=== PATIENT | male | born 1965 | race Caucasian/White ===

== ENCOUNTER 2019-08-19 00:18 | Inpatient (IN) | payer MEDICAID ==
[~2019-08-19] VITALS: Ht 170.2 cm; Wt 107.5 kg
[2019-08-19] VITALS (40 sets, daily range): BP systolic 108–151; BP diastolic 57–107
[2019-08-19] MEDS: ALBUTEROL 6.7GM HFA INHALER ORI SCH
[2019-08-19] MEDS ORDERED: ASPIRIN 81MG TABLET PO ONE (01:30)
[2019-08-19] MEDS ORDERED: FUROSEMIDE 40MG/4ML VIAL IV ONE (01:30)
[2019-08-19] MEDS ORDERED: NITROGLYCERIN OINT 1GM/INCH UDPKT TD ONE (01:30)
[2019-08-19 01:49] LABS: HEMATOCRIT. 23.4 % (42.0-52.0); HEMOGLOBIN. 7.4 g/dL (14.0-18.0); MEAN CORPUSCULAR HEMOGLOBIN 27.6 pg (28.0-32.0); MEAN PLATELET VOLUME 8.7 fl (7.4-10.4); PLATELET 260 x1000/uL (130-400); RED BLOOD CELL COUNT 2.69 mill/uL (4.7-6.1); RED CELL DISTRIBUTION WIDTH 18.3 % (11.6-14.6)
[2019-08-19 01:56] LABS: INR 1.1; PARTIAL THROMBOPLASTIN TIME 28.5 sec (23.4-31.0); PROTHROMBIN TIME 11.8 sec (9.6-11.0)
[2019-08-19 02:10] LABS: CHLORIDE 114 mEq/L (98-107)
[2019-08-19] MEDS ORDERED: PIPERACILLIN/TAZ 3.375G PREMIX 50 ML IV ONE (02:30)
[2019-08-19] MEDS ORDERED: VANCOMYCIN 1 G PREMIX 200 ML IV ONE (02:30)
[2019-08-19] MEDS ORDERED: SODIUM POLYSTYRENE SULFONATE 15 G/60 ML BOT PO ONE (02:30)
[2019-08-19] MEDS ORDERED: DEXTROSE 50% WATER 50ML SYRINGE IV ONE (02:30)
[2019-08-19] MEDS ORDERED: INSULIN REGULAR (HUMULIN R) 300UNITS/3ML IV ONE (02:30)
[2019-08-19] MEDS ORDERED: ALBUTEROL (0.083%) 2.5MG/3ML NEB HHN ONE (02:30)
[2019-08-19] MEDS ORDERED: SODIUM BICARBONATE 8.4% 1 MEQ/ML 50ML SYR IV ONE (02:30)
[2019-08-19 03:30] LABS: PLATELET ESTIMATE NORMAL
[2019-08-19 07:42] LABS: BG BASE EXCESS -12.8 mmol/L (-2.0-2.0); BG BILEVEL POS AIRWAY PRESSURE 15/5; BG CARBOXYHEMOGLOBIN 0.3 % (0.5-1.5); BG DEOXYHEMOGLOBIN 0.2 % (0.0-5.0); BG HCO3 ACT 14.3 mmol/L (22.0-26.0); BG METHEMOGLOBIN 0.3 % (0.0-1.5); BG OXYGEN SATURATION 99.8 % (92.0-98.5); BG OXYHEMOGLOBIN 99.2 % (94.0-97.0); BG PCO2 38.3 mmHg (35.0-45.0); BG PO2 399.4 mmHg (75.0-100.0); BG SAMPLE SITE RIGHT RADIAL; BG TOTAL HEMOGLOBIN 7.1 g/dL (12.0-18.0); BG VENT MODE MASK - BIPAP; BG VENT RATE 16 set
[2019-08-19] MEDS ORDERED: ACETAMINOPHEN 325MG TABLET PO PRN (08:30)
[2019-08-19] MEDS ORDERED: DIPHENHYDRAMINE 50MG/ML VIAL IV PRN (08:30)
[2019-08-19] MEDS ORDERED: ONDANSETRON HCL 4MG/2ML INJ IV PRN (08:30)
[2019-08-19] MEDS ORDERED: CLONIDINE 0.1MG TABLET PO PRN (08:30)
[2019-08-19 08:36] LABS: CLARITY URINE TURBID (CLEAR); COLOR URINE DK YELLOW (YELLOW); KETONES URINE NEGATIVE (NEGATIVE); LEUKOCYTE ESTERASE URINE 3+ (NEGATIVE); NITRITE URINE NEGATIVE (NEGATIVE); OCCULT BLOOD URINE 3+ (NEGATIVE); PH URINE 5.5 (4.5-8.0); PROTEIN URINE 4+ (NEGATIVE); SPECIFIC GRAVITY URINE 1.019 (1.005-1.030); UROBILINOGEN URINE 0.2 E.U./dL (0.2-1.0)
[2019-08-19] MEDS ORDERED: CEFTRIAXONE 1 G PREMIX 50 ML IV SCH (09:00)
[2019-08-19] MEDS: SODIUM BICARBONATE 100 MEQ in SODIUM CHLORIDE 0.45% 1,000 ML IV SCH (09:42)
[2019-08-19] MEDS ORDERED: AZITHROMYCIN 500 MG in DEXT 5% WATER 250 ML IV SCH (10:00)
[2019-08-19] MEDS ORDERED: HEPARIN SODIUM 1,000 UNIT/1ML VIAL IV SCH (15:30)
[2019-08-19] MEDS ORDERED: DEXTROSE 50% WATER 50ML SYRINGE IV PRN (16:15)
[2019-08-19] MEDS: BLOOD SUGAR DIAGNOSTIC STRIP TEST SCH ×2 (16:31→21:46)
[2019-08-19] MEDS: INSULIN LISPRO 100 UNITS/ML SUBCUT SCH ×2 (16:32→21:00)
[2019-08-19 17:44] LABS: BG BASE EXCESS -5.8 mmol/L (-2.0-2.0); BG CARBOXYHEMOGLOBIN 0.3 % (0.5-1.5); BG DEOXYHEMOGLOBIN 5.3 % (0.0-5.0); BG HCO3 ACT 21.4 mmol/L (22.0-26.0); BG METHEMOGLOBIN 0.2 % (0.0-1.5); BG OXYGEN SATURATION 94.7 % (92.0-98.5); BG OXYHEMOGLOBIN 94.2 % (94.0-97.0); BG PCO2 52.4 mmHg (35.0-45.0); BG PH 7.229 (7.350-7.450); BG PO2 83.2 mmHg (75.0-100.0); BG SAMPLE SITE RIGHT RADIAL; BG TOTAL HEMOGLOBIN 7.3 g/dL (12.0-18.0); BG VENT MODE MASK - VENTI
[2019-08-19 21:47] LABS: BG BASE EXCESS -7.3 mmol/L (-2.0-2.0); BG CARBOXYHEMOGLOBIN 0.3 % (0.5-1.5); BG DEOXYHEMOGLOBIN 7.8 % (0.0-5.0); BG FRACTION INSPIRED OXYGEN 50; BG METHEMOGLOBIN 0.2 % (0.0-1.5); BG OXYGEN SATURATION 92.2 % (92.0-98.5); BG OXYHEMOGLOBIN 91.7 % (94.0-97.0); BG PCO2 57.3 mmHg (35.0-45.0); BG PH 7.182 (7.350-7.450); BG PO2 72.9 mmHg (75.0-100.0); BG SAMPLE SITE LEFT RADIAL; BG TOTAL HEMOGLOBIN 9.5 g/dL (12.0-18.0); BG VENT MODE MASK - VENTI
[2019-08-20] VITALS (52 sets, daily range): BP systolic 102–138; BP diastolic 54–80
[2019-08-20] MEDS: ALBUTEROL 6.7GM HFA INHALER ORI SCH (04:00)
[2019-08-20] MEDS: SODIUM BICARBONATE 100 MEQ in SODIUM CHLORIDE 0.45% 1,000 ML IV SCH ×2 (04:06→04:20)
[2019-08-20] MEDS: INSULIN LISPRO 100 UNITS/ML SUBCUT SCH ×4 (06:32→21:00)
[2019-08-20] MEDS: BLOOD SUGAR DIAGNOSTIC STRIP TEST SCH ×4 (06:32→21:02)
[2019-08-20] MEDS ORDERED: CEFTRIAXONE 1 G PREMIX 50 ML IV SCH (09:00)
[2019-08-20] MEDS: IPRATROPIUM/ALBUTEROL 0.5-3(2.5)MG/3ML NEB HHN SCH ×3 (09:00→21:10)
[2019-08-20 09:04] LABS: BG BASE EXCESS -8.1 mmol/L (-2.0-2.0); BG BILEVEL POS AIRWAY PRESSURE 15/5; BG CARBOXYHEMOGLOBIN 0.3 % (0.5-1.5); BG FRACTION INSPIRED OXYGEN 50; BG METHEMOGLOBIN 0.3 % (0.0-1.5); BG OXYGEN SATURATION 81.9 % (92.0-98.5); BG OXYHEMOGLOBIN 81.4 % (94.0-97.0); BG PCO2 56.6 mmHg (35.0-45.0); BG PH 7.167 (7.350-7.450); BG SAMPLE SITE RIGHT RADIAL; BG TOTAL HEMOGLOBIN 7.4 g/dL (12.0-18.0); BG VENT MODE MASK - BIPAP
[2019-08-20] MEDS ORDERED: IPRATROPIUM/ALBUTEROL 0.5-3(2.5)MG/3ML NEB HHN PRN (09:30)
[2019-08-20] MEDS ORDERED: AZITHROMYCIN 500 MG in DEXT 5% WATER 250 ML IV SCH (10:00)
[2019-08-20] MEDS: PANTOPRAZOLE SODIUM 40 MG/VIAL IV SCH (10:10)
[2019-08-20] MEDS: CEFEPIME 1,000 MG in DEXTROSE 5% WATER 50 ML IV SCH (10:10)
[2019-08-20 10:32] LABS: HEMATOCRIT. 21.2 % (42.0-52.0); MEAN CORPUSCULAR HEMOGLOBIN 28.2 pg (28.0-32.0); MEAN CORPUSCULAR VOLUME 86.6 fL (80.0-94.0); MEAN PLATELET VOLUME 8.1 fl (7.4-10.4); PLATELET 213 x1000/uL (130-400); RED BLOOD CELL COUNT 2.45 mill/uL (4.7-6.1); RED CELL DISTRIBUTION WIDTH 17.9 % (11.6-14.6)
[2019-08-20 10:48] LABS: HEMOGLOBIN. 6.9 g/dL (14.0-18.0)
[2019-08-20 10:57] LABS: *AMPHETAMINES SCREEN URINE NEGATIVE (NEGATIVE)
[2019-08-20 10:58] LABS: *BARBITURATES SCREEN URINE NEGATIVE (NEGATIVE); *BENZODIAZEPINES SCREEN URINE NEGATIVE (NEGATIVE); *COCAINE SCREEN URINE NEGATIVE (NEGATIVE); METHADONE URINE SCREEN NEGATIVE (NEGATIVE); OPIATES URINE SCREEN NEGATIVE (NEGATIVE); PHENCYCLIDINE URINE SCREEN NEGATIVE (NEGATIVE)
[2019-08-20 10:59] LABS: CANNABINOID URINE SCREEN NEGATIVE (NEGATIVE)
[2019-08-20 12:39] LABS: PLATELET ESTIMATE NORMAL
[2019-08-20 12:43] LABS: BG BASE EXCESS -8.6 mmol/L (-2.0-2.0); BG BILEVEL POS AIRWAY PRESSURE ST=20/5; BG CARBOXYHEMOGLOBIN 0.3 % (0.5-1.5); BG DEOXYHEMOGLOBIN 1.4 % (0.0-5.0); BG FRACTION INSPIRED OXYGEN 70; BG HCO3 ACT 19.4 mmol/L (22.0-26.0); BG METHEMOGLOBIN 0.4 % (0.0-1.5); BG OXYGEN SATURATION 98.6 % (92.0-98.5); BG OXYHEMOGLOBIN 97.9 % (94.0-97.0); BG PCO2 54.5 mmHg (35.0-45.0); BG PH 7.169 (7.350-7.450); BG PO2 144.6 mmHg (75.0-100.0); BG SAMPLE SITE LEFT RADIAL; BG VENT MODE MASK - BIPAP; BG VENT RATE 16 set
[2019-08-20] MEDS: HEPARIN 5000 UNITS/ML VIAL SUBCUT SCH (14:00)
[2019-08-20 21:49] LABS: BG BASE EXCESS -2.4 mmol/L (-2.0-2.0); BG BILEVEL POS AIRWAY PRESSURE 20/5; BG DEOXYHEMOGLOBIN 1.1 % (0.0-5.0); BG FRACTION INSPIRED OXYGEN 70; BG HCO3 ACT 24.4 mmol/L (22.0-26.0); BG METHEMOGLOBIN 0.4 % (0.0-1.5); BG OXYGEN SATURATION 98.9 % (92.0-98.5); BG OXYHEMOGLOBIN 98.5 % (94.0-97.0); BG PH 7.281 (7.350-7.450); BG PO2 161.1 mmHg (75.0-100.0); BG SAMPLE SITE RIGHT RADIAL; BG TOTAL HEMOGLOBIN 8.2 g/dL (12.0-18.0); BG VENT MODE MASK - BIPAP
[2019-08-20 22:13] LABS: HEMATOCRIT. 22.1 % (42.0-52.0); HEMOGLOBIN. 7.4 g/dL (14.0-18.0); MEAN CORPUSCULAR HEMOGLOBIN 29.2 pg (28.0-32.0); MEAN CORPUSCULAR VOLUME 87.2 fL (80.0-94.0); MEAN PLATELET VOLUME 8.1 fl (7.4-10.4); PLATELET 202 x1000/uL (130-400); RED BLOOD CELL COUNT 2.53 mill/uL (4.7-6.1); RED CELL DISTRIBUTION WIDTH 17.4 % (11.6-14.6)
[2019-08-20 22:27] LABS: INR 1.2; PROTHROMBIN TIME 12.1 sec (9.6-11.0)
[2019-08-20 22:53] LABS: PLATELET ESTIMATE NORMAL
[2019-08-21] VITALS (66 sets, daily range): BP systolic 96–167; BP diastolic 18–82
[2019-08-21] MEDS: SODIUM BICARBONATE 100 MEQ in SODIUM CHLORIDE 0.45% 1,000 ML IV SCH (00:48)
[2019-08-21] MEDS: IPRATROPIUM/ALBUTEROL 0.5-3(2.5)MG/3ML NEB HHN SCH ×6 (01:00→21:02)
[2019-08-21 05:49] LABS: HEMATOCRIT. 23.3 % (42.0-52.0); HEMOGLOBIN. 7.6 g/dL (14.0-18.0); MEAN CORPUSCULAR HEMOGLOBIN 28.7 pg (28.0-32.0); MEAN CORPUSCULAR VOLUME 88.4 fL (80.0-94.0); PLATELET 187 x1000/uL (130-400); RED BLOOD CELL COUNT 2.64 mill/uL (4.7-6.1); RED CELL DISTRIBUTION WIDTH 17.4 % (11.6-14.6)
[2019-08-21 06:21] LABS: FOLIC ACID (FOLATE) SERUM 6.3 ng/mL (>5.38)
[2019-08-21 06:24] LABS: FERRITIN 675 ng/mL (22-322); HEPATITIS B SURFACE AB < 3.1 mIU/mL
[2019-08-21] MEDS: BLOOD SUGAR DIAGNOSTIC STRIP TEST SCH ×4 (06:30→21:00)
[2019-08-21 06:35] LABS: HEPATITIS B SURFACE ANTIGEN NEGATIVE
[2019-08-21] MEDS: INSULIN LISPRO 100 UNITS/ML SUBCUT SCH ×4 (07:00→21:00)
[2019-08-21 07:05] LABS: HEPATITIS A AB IGM NEGATIVE (NEGATIVE)
[2019-08-21 07:52] LABS: PLATELET ESTIMATE NORMAL
[2019-08-21 08:39] LABS: BG BASE EXCESS -0.9 mmol/L (-2.0-2.0); BG BILEVEL POS AIRWAY PRESSURE ST=20/5; BG CARBOXYHEMOGLOBIN 0.2 % (0.5-1.5); BG DEOXYHEMOGLOBIN 5.4 % (0.0-5.0); BG FRACTION INSPIRED OXYGEN 70; BG HCO3 ACT 26.9 mmol/L (22.0-26.0); BG METHEMOGLOBIN 0.1 % (0.0-1.5); BG OXYGEN SATURATION 94.6 % (92.0-98.5); BG OXYHEMOGLOBIN 94.3 % (94.0-97.0); BG PCO2 64.3 mmHg (35.0-45.0); BG PH 7.239 (7.350-7.450); BG PO2 80.3 mmHg (75.0-100.0); BG SAMPLE SITE RIGHT BRACHIAL; BG TOTAL HEMOGLOBIN 7.8 g/dL (12.0-18.0); BG VENT MODE MASK - BIPAP; BG VENT RATE 20 set
[2019-08-21] MEDS: PANTOPRAZOLE SODIUM 40 MG/VIAL IV SCH (09:45)
[2019-08-21] MEDS: DEXT 5%/0.45% NACL 1000ML 1,000 ML IV SCH (10:00)
[2019-08-21] MEDS: CEFEPIME 1,000 MG in DEXTROSE 5% WATER 50 ML IV SCH (10:26)
[2019-08-21] MEDS ORDERED: SODIUM CHLORIDE 10% FOR INH 15ML VIAL NEB INH NR (11:00)
[2019-08-21] MEDS ORDERED: NORMAL SALINE 0.9% 10 ML SYR ONE (11:17)
[2019-08-21] MEDS ORDERED: BUPIVACAINE/EPINEPH/PF 0.25%/0.0005 10ML ONE ×2 (11:17→11:21)
[2019-08-21] MEDS ORDERED: BACITRACIN 50,000 UNITS/VIAL ONE (11:17)
[2019-08-21] MEDS ORDERED: EPINEPHRINE 4 MG in DEXT 5% WATER 246 ML IV SCH (11:45)
[2019-08-21] MEDS ORDERED: FENTANYL CITRATE/PF 50MCG/ML 2ML VIAL ONE (11:50)
[2019-08-21] MEDS ORDERED: NEOSTIGMINE METHYLSULFATE 1MG/ML 10 ML VIAL ONE (11:50)
[2019-08-21] MEDS ORDERED: ROCURONIUM BROMIDE 10MG/ML VIAL 5ML IV ONE (11:50)
[2019-08-21] MEDS ORDERED: PROPOFOL 200MG/20ML VIAL IV ONE (11:50)
[2019-08-21] MEDS ORDERED: MIDAZOLAM HCL 2 MG/2 ML VIAL ONE (11:51)
[2019-08-21] MEDS ORDERED: METOCLOPRAMIDE HCL 10MG/2ML VIAL ONE (11:51)
[2019-08-21] MEDS ORDERED: PHENYLEPHRINE HCL 10 MG/ML 1ML (IV VIAL) IV ONE (11:51)
[2019-08-21] MEDS ORDERED: EPHEDRINE SULFATE 50MG/ML VIAL ONE (11:51)
[2019-08-21] MEDS ORDERED: ONDANSETRON HCL 4MG/2ML INJ ONE (11:51)
[2019-08-21] MEDS ORDERED: GLYCOPYRROLATE 0.2 MG/ML 2ML VIAL ONE (11:51)
[2019-08-21] MEDS ORDERED: CEFAZOLIN SODIUM 1000MG/VIAL ONE (11:51)
[2019-08-21] MEDS ORDERED: SODIUM CHLORIDE 0.9% 10ML VIAL ONE (11:51)
[2019-08-21] MEDS ORDERED: SUCCINYLCHOLINE CHLORIDE 200MG/10ML IV ONE (11:51)
[2019-08-21] MEDS ORDERED: ETOMIDATE 2MG/ML 10ML VIAL IV ONE (11:54)
[2019-08-21] MEDS ORDERED: LIDOCAINE HCL 2% JELLY 5ML ONE (12:09)
[2019-08-21] MEDS ORDERED: TETRACAINE/BENZOCAINE/BUTAMBEN 20 GM SPRAY MM ONE (12:09)
[2019-08-21] MEDS ORDERED: KETOROLAC 30MG/ML VIAL ONE (12:35)
[2019-08-21] MEDS ORDERED: MORPHINE SULFATE 2 MG/ML CPJ (NOT FOR IM USE) IV PRN (13:45)
[2019-08-21] MEDS ORDERED: MAGNESIUM SULFATE 3 GM in DEXT 5% WATER 100 ML IV PRN (13:45)
[2019-08-21] MEDS ORDERED: ONDANSETRON HCL 4MG/2ML INJ IV PRN (13:45)
[2019-08-21] MEDS ORDERED: MAGNESIUM 1 G PREMIX 100 ML IV PRN (13:45)
[2019-08-21] MEDS: PROPOFOL 10MG/ML 100ML 100 ML IV PRN ×2 (15:00→20:19)
[2019-08-21 15:08] LABS: BG BASE EXCESS -1.6 mmol/L (-2.0-2.0); BG CARBOXYHEMOGLOBIN 0.3 % (0.5-1.5); BG DEOXYHEMOGLOBIN 0.8 % (0.0-5.0); BG FRACTION INSPIRED OXYGEN 70; BG HCO3 ACT 21.7 mmol/L (22.0-26.0); BG METHEMOGLOBIN 0.3 % (0.0-1.5); BG OXYGEN SATURATION 99.2 % (92.0-98.5); BG OXYHEMOGLOBIN 98.6 % (94.0-97.0); BG PCO2 30.2 mmHg (35.0-45.0); BG PH 7.474 (7.350-7.450); BG PO2 265.3 mmHg (75.0-100.0); BG SAMPLE SITE A-LINE; BG TIDAL VOLUME(mL) 700 mL; BG TOTAL HEMOGLOBIN 7.2 g/dL (12.0-18.0); BG VENT MODE VENT - A/C; BG VENT RATE 16 set
[2019-08-21 16:41] LABS: PHOSPHORUS 7.1 mg/dL (2.5-4.9)
[2019-08-21 16:52] LABS: MEAN CORPUSCULAR HEMOGLOBIN 28.4 pg (28.0-32.0); MEAN CORPUSCULAR VOLUME 85.7 fL (80.0-94.0); MEAN PLATELET VOLUME 8.4 fl (7.4-10.4); PLATELET 192 x1000/uL (130-400); RED BLOOD CELL COUNT 2.33 mill/uL (4.7-6.1); RED CELL DISTRIBUTION WIDTH 17.1 % (11.6-14.6)
[2019-08-21 17:06] LABS: HEMOGLOBIN. 6.6 g/dL (14.0-18.0)
[2019-08-21 17:47] LABS: PLATELET ESTIMATE NORMAL
[2019-08-21] MEDS ORDERED: MAGNESIUM 4 G PREMIX 100 ML IV NR (18:30)
[2019-08-22] VITALS (90 sets, daily range): BP systolic 112–166; BP diastolic 46–86
[2019-08-22] MEDS: IPRATROPIUM/ALBUTEROL 0.5-3(2.5)MG/3ML NEB HHN SCH ×5 (00:28→15:30)
[2019-08-22] MEDS: PROPOFOL 10MG/ML 100ML 100 ML IV PRN ×2 (01:49→06:35)
[2019-08-22] MEDS: BLOOD SUGAR DIAGNOSTIC STRIP TEST SCH ×4 (06:30→21:00)
[2019-08-22] MEDS: INSULIN LISPRO 100 UNITS/ML SUBCUT SCH ×4 (07:00→21:00)
[2019-08-22 07:13] LABS: BASOPHILS % 0.6 % (0.0-2.0); EOSINOPHILS % 2.8 % (0.0-5.0); HEMOGLOBIN. 7.4 g/dL (14.0-18.0); LYMPHOCYTES % 7.2 % (20.0-50.0); MEAN CORPUSCULAR HEMOGLOBIN 28.7 pg (28.0-32.0); MEAN CORPUSCULAR VOLUME 84.9 fL (80.0-94.0); MEAN PLATELET VOLUME 8.3 fl (7.4-10.4); MONOCYTES % 8.2 % (2.0-8.0); NEUTROPHILS % 81.2 % (40.0-76.0); PLATELET 202 x1000/uL (130-400); RED BLOOD CELL COUNT 2.59 mill/uL (4.7-6.1); RED CELL DISTRIBUTION WIDTH 15.9 % (11.6-14.6)
[2019-08-22] MEDS: PANTOPRAZOLE SODIUM 40 MG/VIAL IV SCH (09:16)
[2019-08-22] MEDS: DEXT 5%/0.45% NACL 1000ML 1,000 ML IV SCH (09:16)
[2019-08-22 09:28] LABS: BG BASE EXCESS -3.9 mmol/L (-2.0-2.0); BG CARBOXYHEMOGLOBIN 0.2 % (0.5-1.5); BG DEOXYHEMOGLOBIN 0.9 % (0.0-5.0); BG FRACTION INSPIRED OXYGEN 40; BG HCO3 ACT 20.1 mmol/L (22.0-26.0); BG METHEMOGLOBIN 0.3 % (0.0-1.5); BG OXYGEN SATURATION 99.1 % (92.0-98.5); BG OXYHEMOGLOBIN 98.6 % (94.0-97.0); BG PCO2 32.2 mmHg (35.0-45.0); BG PH 7.414 (7.350-7.450); BG SAMPLE SITE A-LINE; BG TIDAL VOLUME(mL) 700 mL; BG TOTAL HEMOGLOBIN 7.7 g/dL (12.0-18.0); BG VENT MODE VENT - A/C; BG VENT RATE 12 set
[2019-08-22] MEDS: CEFEPIME 1,000 MG in DEXTROSE 5% WATER 50 ML IV SCH (11:19)
[2019-08-22 11:25] LABS: BG BASE EXCESS -3.9 mmol/L (-2.0-2.0); BG CARBOXYHEMOGLOBIN 0.1 % (0.5-1.5); BG FRACTION INSPIRED OXYGEN 40; BG HCO3 ACT 21.6 mmol/L (22.0-26.0); BG METHEMOGLOBIN 0.3 % (0.0-1.5); BG OXYHEMOGLOBIN 96.6 % (94.0-97.0); BG PO2 102.2 mmHg (75.0-100.0); BG PRESSURE SUPPORT 8; BG SAMPLE SITE A-LINE; BG VENT MODE VENT - CPAP
[2019-08-22] MEDS: CALCIUM ACETATE 667MG CAPSULE PO SCH ×2 (11:37→17:00)
[2019-08-22] MEDS: MAGNESIUM 2 G PREMIX 50 ML IV PRN (15:45)
[2019-08-23] VITALS (78 sets, daily range): BP systolic 76–141; BP diastolic 48–88
[2019-08-23 05:03] LABS: HEMATOCRIT. 33.4 % (42.0-52.0); MEAN CORPUSCULAR HEMOGLOBIN 28.8 pg (28.0-32.0); MEAN CORPUSCULAR VOLUME 87.8 fL (80.0-94.0); MEAN PLATELET VOLUME 8.2 fl (7.4-10.4); PLATELET 217 x1000/uL (130-400); RED BLOOD CELL COUNT 3.81 mill/uL (4.7-6.1); RED CELL DISTRIBUTION WIDTH 15.9 % (11.6-14.6)
[2019-08-23] MEDS: INSULIN LISPRO 100 UNITS/ML SUBCUT SCH ×4 (07:00→20:22)
[2019-08-23] MEDS: BLOOD SUGAR DIAGNOSTIC STRIP TEST SCH ×4 (07:00→20:22)
[2019-08-23] MEDS: CALCIUM ACETATE 667MG CAPSULE PO SCH ×3 (07:00→17:00)
[2019-08-23] MEDS: IPRATROPIUM/ALBUTEROL 0.5-3(2.5)MG/3ML NEB HHN SCH ×4 (07:48→21:45)
[2019-08-23] MEDS: DEXT 5%/0.45% NACL 1000ML 1,000 ML IV SCH (09:32)
[2019-08-23] MEDS: PANTOPRAZOLE SODIUM 40 MG/VIAL IV SCH (09:32)
[2019-08-23 09:45] LABS: PLATELET ESTIMATE NORMAL
[2019-08-23] MEDS: CEFEPIME 1,000 MG in DEXTROSE 5% WATER 50 ML IV SCH (11:38)
[2019-08-23] MEDS: MAGNESIUM 2 G PREMIX 50 ML IV PRN (17:43)
[2019-08-23] MEDS: LORAZEPAM 2MG/ML CPJ IV PRN (22:59)
[2019-08-24] VITALS (12 sets, daily range): BP systolic 99–157; BP diastolic 50–85
[2019-08-24] MEDS ORDERED: DILTIAZEM HCL 30MG TABLET PO NR
[2019-08-24] MEDS: DILTIAZEM HCL 5MG/ML 5ML VIAL IV PRN ×3 (00:10→04:21)
[2019-08-24] MEDS ORDERED: DILTIAZEM HCL 5MG/ML 5ML VIAL IV ONE (00:12)
[2019-08-24] MEDS: METRONIDAZOLE 500 MG PREMIX 100 ML IV SCH ×4 (02:18→22:50)
[2019-08-24] MEDS: IPRATROPIUM/ALBUTEROL 0.5-3(2.5)MG/3ML NEB HHN SCH ×6 (04:00→20:22)
[2019-08-24] MEDS: DOXYCYCLINE 100 MG in DEXT 5% WATER 100 ML IV SCH ×3 (04:19→20:56)
[2019-08-24] MEDS: BLOOD SUGAR DIAGNOSTIC STRIP TEST SCH ×4 (06:33→21:08)
[2019-08-24] MEDS: DILTIAZEM HCL 30MG TABLET PO SCH ×4 (06:33→23:39)
[2019-08-24] MEDS: INSULIN LISPRO 100 UNITS/ML SUBCUT SCH ×4 (07:20→21:00)
[2019-08-24 08:10] LABS: HEMATOCRIT. 32.8 % (42.0-52.0); HEMOGLOBIN. 10.6 g/dL (14.0-18.0); MEAN CORPUSCULAR HEMOGLOBIN 28.9 pg (28.0-32.0); MEAN CORPUSCULAR VOLUME 89.6 fL (80.0-94.0); MEAN PLATELET VOLUME 7.8 fl (7.4-10.4); PLATELET 203 x1000/uL (130-400); RED BLOOD CELL COUNT 3.66 mill/uL (4.7-6.1); RED CELL DISTRIBUTION WIDTH 16.2 % (11.6-14.6)
[2019-08-24] MEDS: PANTOPRAZOLE SODIUM 40 MG/VIAL IV SCH (08:36)
[2019-08-24] MEDS: CALCIUM ACETATE 667MG CAPSULE PO SCH ×3 (08:37→17:20)
[2019-08-24] MEDS: CEFEPIME 1,000 MG in DEXTROSE 5% WATER 50 ML IV SCH (10:55)
[2019-08-24] MEDS: DEXT 5%/0.45% NACL 1000ML 1,000 ML IV SCH (11:06)
[2019-08-24] MEDS: LORAZEPAM 2MG/ML CPJ IV PRN (15:19)
[2019-08-24 16:50] LABS: PLATELET ESTIMATE NORMAL
[2019-08-24] MEDS ORDERED: HEPARIN SODIUM 1,000 UNIT/1ML VIAL IV SCH (17:15)
[2019-08-25] VITALS (13 sets, daily range): BP systolic 51–128; BP diastolic 23–70
[2019-08-25] MEDS: IPRATROPIUM/ALBUTEROL 0.5-3(2.5)MG/3ML NEB HHN SCH ×7 (00:36→23:54)
[2019-08-25] MEDS: DILTIAZEM HCL 30MG TABLET PO SCH ×3 (06:00→22:00)
[2019-08-25] MEDS: METRONIDAZOLE 500 MG PREMIX 100 ML IV SCH ×3 (06:26→23:32)
[2019-08-25] MEDS: BLOOD SUGAR DIAGNOSTIC STRIP TEST SCH ×4 (06:35→21:36)
[2019-08-25 06:57] LABS: HEMATOCRIT. 31.2 % (42.0-52.0); MEAN CORPUSCULAR HEMOGLOBIN 28.6 pg (28.0-32.0); MEAN CORPUSCULAR VOLUME 89.2 fL (80.0-94.0); MEAN PLATELET VOLUME 7.8 fl (7.4-10.4); PLATELET 212 x1000/uL (130-400)
[2019-08-25] MEDS: CALCIUM ACETATE 667MG CAPSULE PO SCH ×3 (08:31→16:58)
[2019-08-25] MEDS: INSULIN LISPRO 100 UNITS/ML SUBCUT SCH ×4 (08:32→21:00)
[2019-08-25] MEDS: DOXYCYCLINE 100 MG in DEXT 5% WATER 100 ML IV SCH ×2 (08:32→21:36)
[2019-08-25] MEDS: FAMOTIDINE 20MG/2ML VIAL IV SCH (08:32)
[2019-08-25] MEDS: MAGNESIUM 2 G PREMIX 50 ML IV PRN (13:07)
[2019-08-25 13:26] LABS: PLATELET ESTIMATE NORMAL
[2019-08-25] MEDS: CEFEPIME 1,000 MG in DEXTROSE 5% WATER 50 ML IV SCH (13:39)
[2019-08-25] MEDS ORDERED: HEPARIN SODIUM 1,000 UNIT/1ML VIAL IV ONE (17:00)
[2019-08-25] MEDS: LORAZEPAM 2MG/ML CPJ IV PRN (21:22)
[2019-08-26] VITALS (12 sets, daily range): BP systolic 95–125; BP diastolic 45–80
[2019-08-26] MEDS: IPRATROPIUM/ALBUTEROL 0.5-3(2.5)MG/3ML NEB HHN SCH ×5 (03:54→20:00)
[2019-08-26] MEDS: DILTIAZEM HCL 30MG TABLET PO SCH ×3 (06:00→22:00)
[2019-08-26] MEDS: BLOOD SUGAR DIAGNOSTIC STRIP TEST SCH ×4 (06:11→21:15)
[2019-08-26] MEDS: METRONIDAZOLE 500 MG PREMIX 100 ML IV SCH ×3 (06:21→22:19)
[2019-08-26 06:47] LABS: HEMATOCRIT. 32.1 % (42.0-52.0); HEMOGLOBIN. 10.4 g/dL (14.0-18.0); MEAN CORPUSCULAR HEMOGLOBIN 28.8 pg (28.0-32.0); MEAN PLATELET VOLUME 7.9 fl (7.4-10.4); PLATELET 194 x1000/uL (130-400); RED BLOOD CELL COUNT 3.61 mill/uL (4.7-6.1); RED CELL DISTRIBUTION WIDTH 15.7 % (11.6-14.6)
[2019-08-26] MEDS: INSULIN LISPRO 100 UNITS/ML SUBCUT SCH ×4 (07:20→21:00)
[2019-08-26] MEDS: CALCIUM ACETATE 667MG CAPSULE PO SCH ×3 (07:20→17:59)
[2019-08-26] MEDS: DOXYCYCLINE 100 MG in DEXT 5% WATER 100 ML IV SCH ×2 (09:12→21:19)
[2019-08-26] MEDS: FAMOTIDINE 20MG/2ML VIAL IV SCH (09:12)
[2019-08-26 10:49] LABS: PLATELET ESTIMATE NORMAL
[2019-08-26] MEDS ORDERED: LACTULOSE 20G/30ML UDC PO PRN (13:15)
[2019-08-27] VITALS (12 sets, daily range): BP systolic 96–129; BP diastolic 48–81
[2019-08-27] MEDS: IPRATROPIUM/ALBUTEROL 0.5-3(2.5)MG/3ML NEB HHN SCH ×6 (04:00→20:00)
[2019-08-27] MEDS: METRONIDAZOLE 500 MG PREMIX 100 ML IV SCH ×3 (05:51→23:13)
[2019-08-27] MEDS: DILTIAZEM HCL 30MG TABLET PO SCH ×2 (06:17→14:40)
[2019-08-27] MEDS: BLOOD SUGAR DIAGNOSTIC STRIP TEST SCH ×4 (06:41→21:27)
[2019-08-27] MEDS: INSULIN LISPRO 100 UNITS/ML SUBCUT SCH ×4 (07:20→21:00)
[2019-08-27 07:37] LABS: HEMATOCRIT. 31.3 % (42.0-52.0); HEMOGLOBIN. 10.1 g/dL (14.0-18.0); MEAN CORPUSCULAR HEMOGLOBIN 28.8 pg (28.0-32.0); MEAN CORPUSCULAR VOLUME 89.1 fL (80.0-94.0); MEAN PLATELET VOLUME 8.1 fl (7.4-10.4); PLATELET 205 x1000/uL (130-400); RED BLOOD CELL COUNT 3.51 mill/uL (4.7-6.1); RED CELL DISTRIBUTION WIDTH 15.8 % (11.6-14.6)
[2019-08-27] MEDS: HEPARIN SODIUM 1,000 UNIT/1ML VIAL IV NR ×2 (10:09→10:51)
[2019-08-27] MEDS: FAMOTIDINE 20MG/2ML VIAL IV SCH (10:50)
[2019-08-27] MEDS: CALCIUM ACETATE 667MG CAPSULE PO SCH ×3 (10:50→17:45)
[2019-08-27] MEDS: DOXYCYCLINE 100 MG in DEXT 5% WATER 100 ML IV SCH ×2 (10:51→21:40)
[2019-08-27] MEDS: LORAZEPAM 2MG/ML CPJ IV PRN (11:22)
[2019-08-27] MEDS: DILTIAZEM HCL 60MG TABLET PO SCH (22:00)
[2019-08-27 23:09] LABS: PLATELET ESTIMATE NORMAL
[2019-08-28] VITALS (12 sets, daily range): BP systolic 96–122; BP diastolic 52–72
[2019-08-28] MEDS: LORAZEPAM 0.5MG TABLET PO PRN ×2 (00:10→21:27)
[2019-08-28] MEDS: IPRATROPIUM/ALBUTEROL 0.5-3(2.5)MG/3ML NEB HHN SCH ×5 (01:06→16:05)
[2019-08-28] MEDS: METRONIDAZOLE 500 MG PREMIX 100 ML IV SCH ×3 (06:05→22:28)
[2019-08-28] MEDS: DILTIAZEM HCL 60MG TABLET PO SCH ×3 (06:09→22:27)
[2019-08-28] MEDS: BLOOD SUGAR DIAGNOSTIC STRIP TEST SCH ×4 (06:34→21:27)
[2019-08-28] MEDS: INSULIN LISPRO 100 UNITS/ML SUBCUT SCH ×4 (07:20→21:24)
[2019-08-28] MEDS: FAMOTIDINE 20MG/2ML VIAL IV SCH (07:58)
[2019-08-28] MEDS: CALCIUM ACETATE 667MG CAPSULE PO SCH ×3 (07:58→17:59)
[2019-08-28] MEDS: DOXYCYCLINE 100 MG in DEXT 5% WATER 100 ML IV SCH ×2 (07:59→21:36)
[2019-08-28 09:12] LABS: HEMATOCRIT. 31.8 % (42.0-52.0); MEAN CORPUSCULAR HEMOGLOBIN 28.4 pg (28.0-32.0); MEAN CORPUSCULAR VOLUME 90.1 fL (80.0-94.0); MEAN PLATELET VOLUME 7.8 fl (7.4-10.4); PLATELET 198 x1000/uL (130-400); RED BLOOD CELL COUNT 3.53 mill/uL (4.7-6.1); RED CELL DISTRIBUTION WIDTH 16.1 % (11.6-14.6)
[2019-08-28 11:21] LABS: INR 1.2; PROTHROMBIN TIME 12.3 sec (9.6-11.0)
[2019-08-28 17:30] LABS: PLATELET ESTIMATE NORMAL
[2019-08-29] VITALS (13 sets, daily range): BP systolic 104–144; BP diastolic 62–88
[2019-08-29] MEDS: DILTIAZEM HCL 60MG TABLET PO SCH ×3 (06:00→22:31)
[2019-08-29 06:32] LABS: HEMATOCRIT. 32.3 % (42.0-52.0); HEMOGLOBIN. 10.3 g/dL (14.0-18.0); MEAN CORPUSCULAR HEMOGLOBIN 28.8 pg (28.0-32.0); MEAN PLATELET VOLUME 8.1 fl (7.4-10.4); PLATELET 196 x1000/uL (130-400); RED BLOOD CELL COUNT 3.59 mill/uL (4.7-6.1)
[2019-08-29] MEDS: BLOOD SUGAR DIAGNOSTIC STRIP TEST SCH ×4 (06:52→21:00)
[2019-08-29] MEDS: INSULIN LISPRO 100 UNITS/ML SUBCUT SCH ×4 (07:20→21:00)
[2019-08-29] MEDS: CALCIUM ACETATE 667MG CAPSULE PO SCH ×3 (07:20→17:34)
[2019-08-29] MEDS: FAMOTIDINE 20MG/2ML VIAL IV SCH (07:52)
[2019-08-29] MEDS: IPRATROPIUM/ALBUTEROL 0.5-3(2.5)MG/3ML NEB HHN SCH ×4 (08:00→20:59)
[2019-08-29] MEDS ORDERED: FENTANYL CITRATE/PF 50MCG/ML 2ML VIAL ONE (08:39)
[2019-08-29] MEDS ORDERED: SODIUM BICARBONATE 4% (2.4MEQ) 5ML VIAL IV ONE (08:45)
[2019-08-29] MEDS ORDERED: LIDOCAINE HCL 1% 20ML VIAL (Pyxis) INJ ONE (08:46)
[2019-08-29] MEDS ORDERED: LORAZEPAM 2MG/ML CPJ IV PRN ×2 (09:45)
[2019-08-29 12:48] LABS: BG BASE EXCESS -2.7 mmol/L (-2.0-2.0); BG CARBOXYHEMOGLOBIN 0.4 % (0.5-1.5); BG DEOXYHEMOGLOBIN 1.9 % (0.0-5.0); BG FRACTION INSPIRED OXYGEN 44; BG HCO3 ACT 24.5 mmol/L (22.0-26.0); BG METHEMOGLOBIN 0.3 % (0.0-1.5); BG OXYGEN SATURATION 98.1 % (92.0-98.5); BG OXYHEMOGLOBIN 97.4 % (94.0-97.0); BG PCO2 53.8 mmHg (35.0-45.0); BG PH 7.277 (7.350-7.450); BG PO2 120.5 mmHg (75.0-100.0); BG SAMPLE SITE RIGHT RADIAL; BG VENT MODE NASAL CANNULA
[2019-08-29] MEDS ORDERED: HEPARIN SODIUM 1,000 UNIT/1ML VIAL IV NR (17:30)
[2019-08-29 19:04] LABS: BG BASE EXCESS 0.7 mmol/L (-2.0-2.0); BG CARBOXYHEMOGLOBIN 0.1 % (0.5-1.5); BG DEOXYHEMOGLOBIN 0.7 % (0.0-5.0); BG FRACTION INSPIRED OXYGEN 100; BG HCO3 ACT 27.8 mmol/L (22.0-26.0); BG METHEMOGLOBIN 0.3 % (0.0-1.5); BG OXYGEN SATURATION 99.3 % (92.0-98.5); BG OXYHEMOGLOBIN 98.9 % (94.0-97.0); BG PCO2 56.8 mmHg (35.0-45.0); BG PH 7.307 (7.350-7.450); BG PO2 246.1 mmHg (75.0-100.0); BG SAMPLE SITE RIGHT RADIAL; BG TOTAL HEMOGLOBIN 11.1 g/dL (12.0-18.0); BG VENT MODE MASK - NRB
[2019-08-29 22:28] LABS: PLATELET ESTIMATE NORMAL
[2019-08-30] VITALS (12 sets, daily range): BP systolic 91–136; BP diastolic 50–77
[2019-08-30] MEDS: IPRATROPIUM/ALBUTEROL 0.5-3(2.5)MG/3ML NEB HHN SCH ×6 (04:00→20:00)
[2019-08-30] MEDS: DILTIAZEM HCL 60MG TABLET PO SCH ×3 (06:00→21:58)
[2019-08-30] MEDS: BLOOD SUGAR DIAGNOSTIC STRIP TEST SCH ×4 (06:07→21:00)
[2019-08-30 07:01] LABS: HEMATOCRIT. 33.7 % (42.0-52.0); HEMOGLOBIN. 10.7 g/dL (14.0-18.0); MEAN CORPUSCULAR VOLUME 91.1 fL (80.0-94.0); MEAN PLATELET VOLUME 7.8 fl (7.4-10.4); PLATELET 175 x1000/uL (130-400); RED CELL DISTRIBUTION WIDTH 16.2 % (11.6-14.6)
[2019-08-30] MEDS: CALCIUM ACETATE 667MG CAPSULE PO SCH ×4 (07:20→18:25)
[2019-08-30] MEDS: INSULIN LISPRO 100 UNITS/ML SUBCUT SCH ×4 (07:20→21:00)
[2019-08-30 08:24] LABS: BG BASE EXCESS -4.7 mmol/L (-2.0-2.0); BG CARBOXYHEMOGLOBIN 0.7 % (0.5-1.5); BG DEOXYHEMOGLOBIN 2.3 % (0.0-5.0); BG FRACTION INSPIRED OXYGEN 44; BG METHEMOGLOBIN 0.1 % (0.0-1.5); BG OXYGEN SATURATION 97.7 % (92.0-98.5); BG OXYHEMOGLOBIN 96.9 % (94.0-97.0); BG PCO2 60.8 mmHg (35.0-45.0); BG PH 7.215 (7.350-7.450); BG PO2 109.1 mmHg (75.0-100.0); BG SAMPLE SITE RIGHT BRACHIAL; BG TOTAL HEMOGLOBIN 13.6 g/dL (12.0-18.0); BG VENT MODE NASAL CANNULA
[2019-08-30] MEDS: FAMOTIDINE 20MG/2ML VIAL IV SCH (09:23)
[2019-08-30 09:27] LABS: PLATELET ESTIMATE NORMAL
[2019-08-30 13:29] LABS: BG BASE EXCESS -2.6 mmol/L (-2.0-2.0); BG BILEVEL POS AIRWAY PRESSURE 20/5; BG CARBOXYHEMOGLOBIN 0.3 % (0.5-1.5); BG DEOXYHEMOGLOBIN 3.5 % (0.0-5.0); BG FRACTION INSPIRED OXYGEN 50; BG METHEMOGLOBIN 0.2 % (0.0-1.5); BG OXYGEN SATURATION 96.5 % (92.0-98.5); BG PCO2 64.8 mmHg (35.0-45.0); BG PH 7.221 (7.350-7.450); BG PO2 94.1 mmHg (75.0-100.0); BG SAMPLE SITE LEFT RADIAL; BG TOTAL HEMOGLOBIN 11.1 g/dL (12.0-18.0); BG VENT MODE MASK - BIPAP
[2019-08-30] MEDS: NYSTATIN POWDER 15GM TOP SCH ×2 (15:45→17:00)
[2019-08-30] MEDS: HEPARIN 5000 UNITS/ML VIAL SUBCUT SCH ×2 (15:49→22:00)
[2019-08-31] VITALS (12 sets, daily range): BP systolic 94–133; BP diastolic 50–70
[2019-08-31] MEDS: IPRATROPIUM/ALBUTEROL 0.5-3(2.5)MG/3ML NEB HHN SCH ×6 (00:41→20:00)
[2019-08-31] MEDS: DILTIAZEM HCL 60MG TABLET PO SCH ×4 (05:51→21:41)
[2019-08-31] MEDS: HEPARIN 5000 UNITS/ML VIAL SUBCUT SCH ×3 (05:52→22:00)
[2019-08-31] MEDS: BLOOD SUGAR DIAGNOSTIC STRIP TEST SCH ×4 (06:14→21:41)
[2019-08-31 06:30] LABS: HEMATOCRIT. 33.4 % (42.0-52.0); HEMOGLOBIN. 10.8 g/dL (14.0-18.0); MEAN CORPUSCULAR VOLUME 89.8 fL (80.0-94.0); MEAN PLATELET VOLUME 8.2 fl (7.4-10.4); PLATELET 179 x1000/uL (130-400); RED BLOOD CELL COUNT 3.71 mill/uL (4.7-6.1); RED CELL DISTRIBUTION WIDTH 16.1 % (11.6-14.6)
[2019-08-31] MEDS: INSULIN LISPRO 100 UNITS/ML SUBCUT SCH ×4 (07:20→21:00)
[2019-08-31 09:28] LABS: BG BILEVEL POS AIRWAY PRESSURE 20/5; BG CARBOXYHEMOGLOBIN 0.4 % (0.5-1.5); BG DEOXYHEMOGLOBIN 2.4 % (0.0-5.0); BG FRACTION INSPIRED OXYGEN 30; BG HCO3 ACT 25.7 mmol/L (22.0-26.0); BG METHEMOGLOBIN 0.2 % (0.0-1.5); BG OXYGEN SATURATION 97.6 % (92.0-98.5); BG PCO2 58.4 mmHg (35.0-45.0); BG PH 7.262 (7.350-7.450); BG PO2 106.3 mmHg (75.0-100.0); BG SAMPLE SITE RIGHT RADIAL; BG TOTAL HEMOGLOBIN 11.3 g/dL (12.0-18.0); BG VENT MODE MASK - BIPAP; BG VENT RATE 20 set
[2019-08-31] MEDS: FAMOTIDINE 20MG/2ML VIAL IV SCH (09:45)
[2019-08-31] MEDS: NYSTATIN POWDER 15GM TOP SCH ×3 (09:45→17:38)
[2019-08-31] MEDS: DILTIAZEM HCL 5MG/ML 5ML VIAL IV PRN (10:20)
[2019-08-31] MEDS: CALCIUM ACETATE 667MG CAPSULE PO SCH ×2 (12:20→17:32)
[2019-08-31 13:00] LABS: PLATELET ESTIMATE NORMAL
[2019-08-31] MEDS: AMIODARONE HCL 200 MG TABLET PO SCH (17:33)
[2019-09-01] VITALS (12 sets, daily range): BP systolic 92–130; BP diastolic 52–84
[2019-09-01] MEDS: IPRATROPIUM/ALBUTEROL 0.5-3(2.5)MG/3ML NEB HHN SCH ×5 (00:10→15:48)
[2019-09-01] MEDS: DILTIAZEM HCL 60MG TABLET PO SCH (06:00)
[2019-09-01] MEDS: HEPARIN 5000 UNITS/ML VIAL SUBCUT SCH ×3 (06:07→21:09)
[2019-09-01] MEDS: BLOOD SUGAR DIAGNOSTIC STRIP TEST SCH ×4 (06:13→20:56)
[2019-09-01] MEDS: INSULIN LISPRO 100 UNITS/ML SUBCUT SCH ×4 (07:20→20:57)
[2019-09-01 07:34] LABS: HEMATOCRIT. 31.4 % (42.0-52.0); HEMOGLOBIN. 10.3 g/dL (14.0-18.0); MEAN CORPUSCULAR HEMOGLOBIN 29.4 pg (28.0-32.0); MEAN CORPUSCULAR VOLUME 89.6 fL (80.0-94.0); PLATELET 199 x1000/uL (130-400); RED BLOOD CELL COUNT 3.51 mill/uL (4.7-6.1); RED CELL DISTRIBUTION WIDTH 16.1 % (11.6-14.6)
[2019-09-01] MEDS: CALCIUM ACETATE 667MG CAPSULE PO SCH ×3 (08:35→17:31)
[2019-09-01] MEDS: FAMOTIDINE 20MG/2ML VIAL IV SCH (08:35)
[2019-09-01] MEDS: NYSTATIN POWDER 15GM TOP SCH ×3 (08:36→17:33)
[2019-09-01 08:40] LABS: BG BASE EXCESS -3.4 mmol/L (-2.0-2.0); BG BILEVEL POS AIRWAY PRESSURE 20/5; BG CARBOXYHEMOGLOBIN 0.3 % (0.5-1.5); BG FRACTION INSPIRED OXYGEN 50; BG METHEMOGLOBIN 0.3 % (0.0-1.5); BG OXYHEMOGLOBIN 97.4 % (94.0-97.0); BG PCO2 47.3 mmHg (35.0-45.0); BG PH 7.305 (7.350-7.450); BG PO2 110.9 mmHg (75.0-100.0); BG SAMPLE SITE RIGHT RADIAL; BG TOTAL HEMOGLOBIN 11.2 g/dL (12.0-18.0); BG VENT MODE MASK - BIPAP; BG VENT RATE 20 set
[2019-09-01] MEDS: AMIODARONE HCL 200 MG TABLET PO SCH ×3 (09:09→17:31)
[2019-09-01] MEDS ORDERED: AMIODARONE HCL 200 MG TABLET PO NR (10:23)
[2019-09-01] MEDS ORDERED: HEPARIN SODIUM 1,000 UNIT/1ML VIAL IV SCH (13:00)
[2019-09-01 13:43] LABS: PLATELET ESTIMATE NORMAL
[2019-09-01] MEDS: DILTIAZEM HCL 30MG TABLET PO SCH ×2 (14:00→21:09)
[2019-09-01 16:36] LABS: BG BASE EXCESS -1.7 mmol/L (-2.0-2.0); BG BILEVEL POS AIRWAY PRESSURE 20/5; BG CARBOXYHEMOGLOBIN 0.2 % (0.5-1.5); BG DEOXYHEMOGLOBIN 4.2 % (0.0-5.0); BG HCO3 ACT 24.3 mmol/L (22.0-26.0); BG METHEMOGLOBIN 0.3 % (0.0-1.5); BG OXYGEN SATURATION 95.8 % (92.0-98.5); BG OXYHEMOGLOBIN 95.3 % (94.0-97.0); BG PCO2 46.2 mmHg (35.0-45.0); BG PH 7.338 (7.350-7.450); BG PO2 82.5 mmHg (75.0-100.0); BG SAMPLE SITE RIGHT RADIAL; BG TOTAL HEMOGLOBIN 10.4 g/dL (12.0-18.0); BG VENT MODE MASK - BIPAP; BG VENT RATE 20 set
[2019-09-02] VITALS (12 sets, daily range): BP systolic 94–138; BP diastolic 56–84
[2019-09-02] MEDS: DILTIAZEM HCL 30MG TABLET PO SCH ×3 (06:00→22:04)
[2019-09-02] MEDS: HEPARIN 5000 UNITS/ML VIAL SUBCUT SCH ×3 (06:31→21:57)
[2019-09-02] MEDS: INSULIN LISPRO 100 UNITS/ML SUBCUT SCH ×4 (06:32→20:34)
[2019-09-02] MEDS: BLOOD SUGAR DIAGNOSTIC STRIP TEST SCH ×4 (06:32→20:27)
[2019-09-02 07:10] LABS: HEMATOCRIT. 31.9 % (42.0-52.0); HEMOGLOBIN. 10.3 g/dL (14.0-18.0); MEAN CORPUSCULAR HEMOGLOBIN 29.1 pg (28.0-32.0); MEAN CORPUSCULAR VOLUME 89.9 fL (80.0-94.0); MEAN PLATELET VOLUME 8.2 fl (7.4-10.4); PLATELET 164 x1000/uL (130-400); RED BLOOD CELL COUNT 3.55 mill/uL (4.7-6.1); RED CELL DISTRIBUTION WIDTH 15.7 % (11.6-14.6)
[2019-09-02] MEDS: IPRATROPIUM/ALBUTEROL 0.5-3(2.5)MG/3ML NEB HHN SCH ×4 (07:48→20:00)
[2019-09-02] MEDS: AMIODARONE HCL 200 MG TABLET PO SCH ×3 (08:24→17:40)
[2019-09-02] MEDS: CALCIUM ACETATE 667MG CAPSULE PO SCH ×3 (08:24→17:39)
[2019-09-02] MEDS: FAMOTIDINE 20MG/2ML VIAL IV SCH (08:24)
[2019-09-02] MEDS: NYSTATIN POWDER 15GM TOP SCH ×3 (08:25→17:40)
[2019-09-02 09:13] LABS: BG BASE EXCESS 1.3 mmol/L (-2.0-2.0); BG CARBOXYHEMOGLOBIN 0.4 % (0.5-1.5); BG DEOXYHEMOGLOBIN 1.2 % (0.0-5.0); BG FRACTION INSPIRED OXYGEN 40; BG HCO3 ACT 27.1 mmol/L (22.0-26.0); BG METHEMOGLOBIN 0.3 % (0.0-1.5); BG OXYGEN SATURATION 98.8 % (92.0-98.5); BG OXYHEMOGLOBIN 98.1 % (94.0-97.0); BG PCO2 48.7 mmHg (35.0-45.0); BG PH 7.364 (7.350-7.450); BG SAMPLE SITE RIGHT BRACHIAL; BG TOTAL HEMOGLOBIN 10.8 g/dL (12.0-18.0); BG VENT MODE NASAL CANNULA
[2019-09-02 13:51] LABS: PLATELET ESTIMATE NORMAL
[2019-09-02] MEDS ORDERED: HEPARIN SODIUM 1,000 UNIT/1ML VIAL IV NR (14:45)
[2019-09-03] VITALS (12 sets, daily range): BP systolic 94–131; BP diastolic 53–72
[2019-09-03] MEDS: IPRATROPIUM/ALBUTEROL 0.5-3(2.5)MG/3ML NEB HHN SCH ×6 (05:03→20:00)
[2019-09-03] MEDS: DILTIAZEM HCL 30MG TABLET PO SCH ×3 (05:17→21:25)
[2019-09-03] MEDS: HEPARIN 5000 UNITS/ML VIAL SUBCUT SCH ×3 (05:17→21:27)
[2019-09-03] MEDS: CALCIUM ACETATE 667MG CAPSULE PO SCH ×3 (06:35→17:46)
[2019-09-03] MEDS: AMIODARONE HCL 200 MG TABLET PO SCH ×3 (06:36→17:46)
[2019-09-03] MEDS: BLOOD SUGAR DIAGNOSTIC STRIP TEST SCH ×4 (06:37→20:19)
[2019-09-03 07:02] LABS: HEMATOCRIT. 29.2 % (42.0-52.0); HEMOGLOBIN. 9.7 g/dL (14.0-18.0); MEAN CORPUSCULAR HEMOGLOBIN 29.4 pg (28.0-32.0); MEAN CORPUSCULAR VOLUME 88.7 fL (80.0-94.0); MEAN PLATELET VOLUME 8.2 fl (7.4-10.4); PLATELET 159 x1000/uL (130-400); RED BLOOD CELL COUNT 3.29 mill/uL (4.7-6.1); RED CELL DISTRIBUTION WIDTH 15.4 % (11.6-14.6)
[2019-09-03] MEDS: INSULIN LISPRO 100 UNITS/ML SUBCUT SCH ×4 (07:20→20:23)
[2019-09-03] MEDS: NYSTATIN POWDER 15GM TOP SCH ×3 (08:35→17:47)
[2019-09-03] MEDS: FAMOTIDINE 20MG/2ML VIAL IV SCH (08:35)
[2019-09-03 10:56] LABS: PLATELET ESTIMATE NORMAL
[2019-09-03 13:50] LABS: PARTIAL THROMBOPLASTIN TIME 27.9 sec (23.4-31.0); PROTHROMBIN TIME 10.8 sec (9.6-11.0)
[2019-09-04] VITALS (10 sets, daily range): BP systolic 105–152; BP diastolic 49–128
[2019-09-04] MEDS: IPRATROPIUM/ALBUTEROL 0.5-3(2.5)MG/3ML NEB HHN SCH ×6 (04:00→21:43)
[2019-09-04] MEDS: DILTIAZEM HCL 30MG TABLET PO SCH ×3 (05:25→21:00)
[2019-09-04] MEDS: BLOOD SUGAR DIAGNOSTIC STRIP TEST SCH ×4 (06:19→21:01)
[2019-09-04] MEDS: CALCIUM ACETATE 667MG CAPSULE PO SCH ×3 (06:26→17:04)
[2019-09-04] MEDS: AMIODARONE HCL 200 MG TABLET PO SCH ×3 (06:26→17:04)
[2019-09-04] MEDS: INSULIN LISPRO 100 UNITS/ML SUBCUT SCH ×4 (06:27→21:01)
[2019-09-04] MEDS: HEPARIN 5000 UNITS/ML VIAL SUBCUT SCH ×3 (06:36→21:00)
[2019-09-04 06:59] LABS: HEMATOCRIT. 27.8 % (42.0-52.0); HEMOGLOBIN. 9.1 g/dL (14.0-18.0); MEAN CORPUSCULAR HEMOGLOBIN 29.3 pg (28.0-32.0); MEAN CORPUSCULAR VOLUME 89.1 fL (80.0-94.0); MEAN PLATELET VOLUME 8.3 fl (7.4-10.4); PLATELET 158 x1000/uL (130-400); RED BLOOD CELL COUNT 3.12 mill/uL (4.7-6.1); RED CELL DISTRIBUTION WIDTH 15.7 % (11.6-14.6)
[2019-09-04] MEDS: FAMOTIDINE 20MG/2ML VIAL IV SCH (09:12)
[2019-09-04] MEDS: NYSTATIN POWDER 15GM TOP SCH ×3 (09:12→17:04)
[2019-09-04] MEDS ORDERED: SODIUM BICARBONATE 4% (2.4MEQ) 5ML VIAL IV ONE (12:17)
[2019-09-04] MEDS ORDERED: LIDOCAINE HCL 1% 20ML VIAL (Pyxis) INJ ONE (12:18)
[2019-09-04] MEDS ORDERED: CEFAZOLIN SODIUM 1000MG/VIAL ONE (13:08)
[2019-09-04] MEDS ORDERED: CALCIUM CHLORIDE 1GM/10ML SYR IV ONE (13:18)
[2019-09-04] MEDS ORDERED: ONDANSETRON HCL 4MG/2ML INJ IV PRN (14:15)
[2019-09-04] MEDS ORDERED: HYDROMORPHONE HCL/PF 2MG/ML CPJ IV PRN (14:15)
[2019-09-04 16:40] LABS: PLATELET ESTIMATE NORMAL
[2019-09-05] VITALS (8 sets, daily range): BP systolic 91–150; BP diastolic 50–99
[2019-09-05] MEDS: IPRATROPIUM/ALBUTEROL 0.5-3(2.5)MG/3ML NEB HHN SCH ×2 (01:02→04:59)
[2019-09-05] MEDS: CALCIUM ACETATE 667MG CAPSULE PO SCH ×2 (06:35→13:56)
[2019-09-05] MEDS: HEPARIN 5000 UNITS/ML VIAL SUBCUT SCH (06:35)
[2019-09-05] MEDS: DILTIAZEM HCL 30MG TABLET PO SCH ×2 (06:35→13:56)
[2019-09-05] MEDS: AMIODARONE HCL 200 MG TABLET PO SCH (06:35)
[2019-09-05] MEDS: BLOOD SUGAR DIAGNOSTIC STRIP TEST SCH ×2 (06:36→12:11)
[2019-09-05 07:13] LABS: HEMATOCRIT. 28.4 % (42.0-52.0); HEMOGLOBIN. 9.3 g/dL (14.0-18.0); MEAN CORPUSCULAR VOLUME 88.7 fL (80.0-94.0); MEAN PLATELET VOLUME 8.3 fl (7.4-10.4); PLATELET 187 x1000/uL (130-400)
[2019-09-05] MEDS: INSULIN LISPRO 100 UNITS/ML SUBCUT SCH ×2 (07:20→12:11)
[2019-09-05] MEDS: NYSTATIN POWDER 15GM TOP SCH ×2 (09:00→13:57)
[2019-09-05] MEDS ORDERED: AMIODARONE HCL 200 MG TABLET PO SCH (11:00)
[2019-09-05] MEDS: FAMOTIDINE 20MG/2ML VIAL IV SCH (11:30)
[2019-09-05] MEDS ORDERED: HEPARIN SODIUM 1,000 UNIT/1ML VIAL IV SCH (12:00)
[2019-09-05 12:54] LABS: PLATELET ESTIMATE NORMAL
== END 2019-09-05 14:42 | DRG 710 ==
LOC: ER 00:18 → MICUSO 02:38 → EDBEDREQ 02:40 → EDBEDREQTM 02:40 → ENRESERV 12:12 → ER 12:45 → MICUNO 08-21 10:23 → 3WST 08-23 19:39
PROVIDERS: ADMIT Internal Medicine; ATTEND Internal Medicine
PROC: 5A1D70Z Performance of Urinary Filtration, Intermittent, Less than 6 Hours Per Day (ICD-10-PCS; 2019-08-19)
PROC: 5A09357 Assistance with Respiratory Ventilation, Less than 24 Consecutive Hours, Continuous Positive Airway Pressure (ICD-10-PCS; 2019-08-19)
PROC: 02HV33Z Insertion of Infusion Device into Superior Vena Cava, Percutaneous Approach (ICD-10-PCS; 2019-08-19)
PROC: B548ZZA Ultrasonography of Superior Vena Cava, Guidance (ICD-10-PCS; 2019-08-19)
PROC: 5A1D70Z Performance of Urinary Filtration, Intermittent, Less than 6 Hours Per Day (ICD-10-PCS; 2019-08-20)
PROC: 5A09457 Assistance with Respiratory Ventilation, 24-96 Consecutive Hours, Continuous Positive Airway Pressure (ICD-10-PCS; 2019-08-20)
PROC: 30233N1 Transfusion of Nonautologous Red Blood Cells into Peripheral Vein, Percutaneous Approach (ICD-10-PCS; 2019-08-20)
PROC: 0W993ZZ Drainage of Right Pleural Cavity, Percutaneous Approach (ICD-10-PCS; 2019-08-20)
PROC: 0BNF4ZZ Release Right Lower Lung Lobe, Percutaneous Endoscopic Approach (ICD-10-PCS; principal; 2019-08-21)
PROC: 0W9940Z Drainage of Right Pleural Cavity with Drainage Device, Percutaneous Endoscopic Approach (ICD-10-PCS; 2019-08-21)
PROC: 5A1D70Z Performance of Urinary Filtration, Intermittent, Less than 6 Hours Per Day (ICD-10-PCS; 2019-08-22)
PROC: 5A1D70Z Performance of Urinary Filtration, Intermittent, Less than 6 Hours Per Day (ICD-10-PCS; 2019-08-24)
PROC: 5A1D70Z Performance of Urinary Filtration, Intermittent, Less than 6 Hours Per Day (ICD-10-PCS; 2019-08-25)
PROC: 5A1D70Z Performance of Urinary Filtration, Intermittent, Less than 6 Hours Per Day (ICD-10-PCS; 2019-08-27)
PROC: 5A1D70Z Performance of Urinary Filtration, Intermittent, Less than 6 Hours Per Day (ICD-10-PCS; 2019-08-29)
PROC: 5A1D70Z Performance of Urinary Filtration, Intermittent, Less than 6 Hours Per Day (ICD-10-PCS; 2019-08-30)
PROC: 5A09357 Assistance with Respiratory Ventilation, Less than 24 Consecutive Hours, Continuous Positive Airway Pressure (ICD-10-PCS; 2019-08-30)
PROC: 5A09457 Assistance with Respiratory Ventilation, 24-96 Consecutive Hours, Continuous Positive Airway Pressure (ICD-10-PCS; 2019-08-31)
PROC: 5A1D70Z Performance of Urinary Filtration, Intermittent, Less than 6 Hours Per Day (ICD-10-PCS; 2019-09-01)
PROC: 5A09457 Assistance with Respiratory Ventilation, 24-96 Consecutive Hours, Continuous Positive Airway Pressure (ICD-10-PCS; 2019-09-01)
PROC: 5A1D70Z Performance of Urinary Filtration, Intermittent, Less than 6 Hours Per Day (ICD-10-PCS; 2019-09-02)
PROC: 5A09357 Assistance with Respiratory Ventilation, Less than 24 Consecutive Hours, Continuous Positive Airway Pressure (ICD-10-PCS; 2019-09-02)
PROC: 5A1D70Z Performance of Urinary Filtration, Intermittent, Less than 6 Hours Per Day (ICD-10-PCS; 2019-09-03)
PROC: 5A09357 Assistance with Respiratory Ventilation, Less than 24 Consecutive Hours, Continuous Positive Airway Pressure (ICD-10-PCS; 2019-09-03)
PROC: 5A09357 Assistance with Respiratory Ventilation, Less than 24 Consecutive Hours, Continuous Positive Airway Pressure (ICD-10-PCS; 2019-09-04)
PROC: 0JH63XZ Insertion of Tunneled Vascular Access Device into Chest Subcutaneous Tissue and Fascia, Percutaneous Approach (ICD-10-PCS; 2019-09-04)
PROC: 02HV33Z Insertion of Infusion Device into Superior Vena Cava, Percutaneous Approach (ICD-10-PCS; 2019-09-04)
PROC: B5181ZA Fluoroscopy of Superior Vena Cava using Low Osmolar Contrast, Guidance (ICD-10-PCS; 2019-09-04)
PROC: 5A1D70Z Performance of Urinary Filtration, Intermittent, Less than 6 Hours Per Day (ICD-10-PCS; 2019-09-05)
PROC: 5A09357 Assistance with Respiratory Ventilation, Less than 24 Consecutive Hours, Continuous Positive Airway Pressure (ICD-10-PCS; 2019-09-05)
DX: A40.1 Sepsis due to streptococcus, group B (principal); N17.0 Acute kidney failure with tubular necrosis; I13.2 Hypertensive heart and chronic kidney disease with heart failure and with stage 5 chronic kidney disease, or end stage renal disease; E43 Unspecified severe protein-calorie malnutrition; J94.2 Hemothorax; J18.9 Pneumonia, unspecified organism; J94.8 Other specified pleural conditions; I31.3 Pericardial effusion (noninflammatory); E11.22 Type 2 diabetes mellitus with diabetic chronic kidney disease; D63.8 Anemia in other chronic diseases classified elsewhere; E87.5 Hyperkalemia; N39.0 Urinary tract infection, site not specified; I50.42 Chronic combined systolic (congestive) and diastolic (congestive) heart failure; J84.10 Pulmonary fibrosis, unspecified; K74.60 Unspecified cirrhosis of liver; K80.70 Calculus of gallbladder and bile duct without cholecystitis without obstruction; R18.8 Other ascites; I48.0 Paroxysmal atrial fibrillation; N18.6 End stage renal disease; Z99.2 Dependence on renal dialysis; K72.90 Hepatic failure, unspecified without coma; E11.42 Type 2 diabetes mellitus with diabetic polyneuropathy; D72.810 Lymphocytopenia; E78.00 Pure hypercholesterolemia, unspecified; E78.5 Hyperlipidemia, unspecified; E87.4 Mixed disorder of acid-base balance; I47.1 Supraventricular tachycardia; J91.8 Pleural effusion in other conditions classified elsewhere; C96.9 Malignant neoplasm of lymphoid, hematopoietic and related tissue, unspecified; R16.0 Hepatomegaly, not elsewhere classified; J96.02 Acute respiratory failure with hypercapnia; I07.1 Rheumatic tricuspid insufficiency; R26.9 Unspecified abnormalities of gait and mobility; I48.92 Unspecified atrial flutter; Z20.828 Contact with and (suspected) exposure to other viral communicable diseases; J96.01 Acute respiratory failure with hypoxia; L89.152 Pressure ulcer of sacral region, stage 2; T79.7XXA Traumatic subcutaneous emphysema, initial encounter; X58.XXXA Exposure to other specified factors, initial encounter; Y93.89 Activity, other specified; Y92.89 Other specified places as the place of occurrence of the external cause; Y99.8 Other external cause status; Z78.1 Physical restraint status; Z22.322 Carrier or suspected carrier of Methicillin resistant Staphylococcus aureus; Z68.37 Body mass index [BMI] 37.0-37.9, adult; J98.2 Interstitial emphysema
CPT/HCPCS: 32555; 36415; 36558; 36589; 36600; 71045; 71250; 76700; 76937; 77001; 80048; 80053; 80076; 80305; 81003; 82040; 82140; 82248; 82375; 82607; 82728; 82746; 82805; 82962; 83036; 83540; 83550; 83605; 83615; 83735; 83880; 84100; 84134; 84145; 84478; 84484; 85025; 85384; 86141; 86705; 86706; 86709; 86803; 86850; 86900; 86920; 87070; 87075; 87340; 88108; 88312; 92610; 93005; 93306; 94002; 94003; 94640; 94660; 97116; 97162; 97164; 97166; 97530; 99291; C1750; C1752; C1769; C9113; J0171; J0330; J0456; J0690; J0692; J0696; J1642; J1644; J1815; J1885; J1940; J2060; J2250; J2370; J2405; J2543; J2704; J2710; J2765; J3010; J3370; J3475; J3490; J7060; J7131; P9016; U0003-CS

== ENCOUNTER 2019-11-28 13:08 | Emergency (ER) | payer MEDICAID ==
[~2019-11-28] VITALS: Ht 170.2 cm; Wt 84.0 kg
[2019-11-28] MEDS ORDERED: ONDANSETRON HCL 4MG/2ML INJ IV STA (14:45)
[2019-11-28] MEDS ORDERED: FAMOTIDINE 20MG/2ML VIAL IV STA (14:45)
[2019-11-28 15:09] LABS: CHLORIDE 103 mEq/L (98-107)
[2019-11-28 15:10] LABS: BASOPHILS % 1.1 % (0.0-2.0); EOSINOPHILS % 1.9 % (0.0-5.0); HEMATOCRIT. 32.3 % (42.0-52.0); HEMOGLOBIN. 10.2 g/dL (14.0-18.0); LYMPHOCYTES % 8.9 % (20.0-50.0); MEAN CORPUSCULAR HEMOGLOBIN 27.8 pg (28.0-32.0); MEAN CORPUSCULAR VOLUME 87.9 fL (80.0-94.0); MEAN PLATELET VOLUME 6.7 fl (7.4-10.4); MONOCYTES % 10.9 % (2.0-8.0); NEUTROPHILS % 77.2 % (40.0-76.0); PLATELET 283 x1000/uL (130-400); RED BLOOD CELL COUNT 3.67 mill/uL (4.7-6.1); RED CELL DISTRIBUTION WIDTH 17.3 % (11.6-14.6)
[2019-11-28 15:15] LABS: PROTHROMBIN TIME 10.3 sec (9.6-11.0)
[2019-11-28] MEDS ORDERED: CEFEPIME 1,000 MG in DEXTROSE 5% WATER 50 ML IV SCH ×2 (17:00→18:45)
[2019-11-28] MEDS ORDERED: ASPIRIN 81MG TABLET PO NR (17:00)
[2019-11-28 21:45] VITALS: BP 171/84
== END 2019-11-29 01:21 | disposition short-term general hospital (02) ==
LOC: ER 13:46 → CANBEDREQ 11-29 04:24
DX: I13.2 Hypertensive heart and chronic kidney disease with heart failure and with stage 5 chronic kidney disease, or end stage renal disease (principal); E11.22 Type 2 diabetes mellitus with diabetic chronic kidney disease; N18.6 End stage renal disease; I50.9 Heart failure, unspecified; Z99.2 Dependence on renal dialysis; E78.00 Pure hypercholesterolemia, unspecified
CPT/HCPCS: 36415; 71045; 76705; 80053; 83690; 83880; 84484; 85025; 85610; 93005; 96365; 96375; 99285; J0692; J2405; J3490; J7060; Z7610